=== PATIENT | male | born 1975 | race Two or more races ===

== ENCOUNTER → 2023-01-30 | Outpatient (CLI) | LOC: M SOG 13:30 | PROVIDERS: ATTEND Physician Assistant | DX: M79.641 Pain in right hand (principal) ==

== ENCOUNTER 2023-02-14 08:58 | Day surgery (SDC) | payer OTHER ==
[~2023-02-14] VITALS: Ht 172.7 cm; Wt 98.0 kg
[~2023-02-14 08:58] MED LIST: D31000CA4 PO; HYDR-3490 PO; LIDOCAINE W/EPINEPHRINE 1% 20ML VIAL XX ONE; SIMV40TA20 PO; SODIUM BICARBONATE 8.4% INJ 50MEQ 50ML VIAL XX ONE; VALS1TAB67 PO
[2023-02-14] MEDS ORDERED: BACITRACIN OINTMENT 30GM TUBE As Ordered ONE (11:19)
[2023-02-14 11:29] VITALS: BP 137/87
== END 2023-02-14 11:45 | disposition home or self-care (01) ==
LOC: M SDC 08:58
PROVIDERS: ATTEND Orthopaedic Surgery Hand Surgery
DX: S60.551A Superficial foreign body of right hand, initial encounter (principal); X58.XXXA Exposure to other specified factors, initial encounter; Y92.89 Other specified places as the place of occurrence of the external cause